=== PATIENT | female | born 1980 | race African-American/Black ===

== ENCOUNTER 2018-06-24 12:04 | Emergency (ER) | payer OTHER ==
[~2018-06-24] VITALS: Ht 172.7 cm; Wt 59.0 kg
[~2018-06-24 12:04] MED LIST: FLUV100T15
[2018-06-24 13:08] LABS: Urine Bacteria FEW /hpf (None Seen); Urine Blood Negative /uL (Negative); Urine Mucus MODERATE (None Seen); Urine WBC 29 /hpf (0 - 5)
[2018-06-24 13:35] LABS: Basophils # (auto) 0.1 uL; Basophils % (auto) 0.6 % (0.0-2.0); Eosinophils # (auto) 0.2 uL; Eosinophils % (auto) 1.3 % (0.0-7.0); Hematocrit 43.9 % (36.0-46.0); Hemoglobin 14.4 g/dL (12.2-16.2); Lymphocytes # (auto) 1.6 uL; Lymphocytes % (auto) 13.8 % (10.0-50.0); Mean Corpuscular Hemoglobin 28.9 pg (28.0-32.0); Mean Corpuscular Hgb Conc. 32.9 g/dL (32.0-36.0); Mean Corpuscular Volume 87.8 fL (80.0-100.0); Monocytes # (auto) 0.6 uL; Monocytes % (auto) 5.3 % (0.0-12.0); Neutrophils # (auto) 9.3 uL; Platelet Count (auto) 223 10^3/uL (140-450); Red Cell Distribution Width 13.6 % (11.8-14.3); White Blood Cell 11.7 10^3/uL (4.4-10.8)
[2018-06-24 13:54] LABS: BUN/Creatinine Ratio 9.6; Bilirubin, Total 0.6 mg/dL (0.2-1.0); Calcium 9.2 mg/dL (8.5-10.1); Total Protein 8.3 g/dL (6.4-8.2)
[2018-06-24] MEDS: LIDOCAINE 1% HCL (LOCAL ANESTH.) INJ 20ML MDV IJ ONE (19:51)
[2018-06-24] MEDS: KETOROLAC TROMETH 60MG/2ML VIAL IM ONE (19:52)
[2018-06-24] MEDS: cefTRIAXone SOD 1,000 MG VL IM ONE (19:52)
[2018-06-24 20:19] VITALS: BP 101/69
== END 2018-06-24 20:24 | disposition home or self-care (01) ==
LOC: ER 12:06
DX: N20.0 Calculus of kidney (principal); N39.0 Urinary tract infection, site not specified; J06.9 Acute upper respiratory infection, unspecified; D25.9 Leiomyoma of uterus, unspecified; Z87.891 Personal history of nicotine dependence
CPT/HCPCS: 36415; 71045; 74176; 80053; 81001; 81025; 83690; 85025; 96372; 99285; J0696; J1885; J2001

== ENCOUNTER 2018-10-25 13:20 | Emergency (ER) | payer OTHER ==
[~2018-10-25] VITALS: Ht 167.6 cm; Wt 61.2 kg
[2018-10-25 13:20] VITALS: BP 114/75
[2018-10-25] MEDS ORDERED: METHOCARBAMOL 500 MG TAB PO ONE (16:15)
[2018-10-25] MEDS ORDERED: KETOROLAC TROMETH 60MG/2ML VIAL IM ONE (16:15)
== END 2018-10-25 17:19 | disposition home or self-care (01) ==
LOC: EDBD 13:20 → ER 13:24
DX: S50.02XA Contusion of left elbow, initial encounter (principal); S80.02XA Contusion of left knee, initial encounter; S80.01XA Contusion of right knee, initial encounter; M19.90 Unspecified osteoarthritis, unspecified site; R51 Headache; M54.2 Cervicalgia; M54.9 Dorsalgia, unspecified; Z79.899 Other long term (current) drug therapy; Z98.51 Tubal ligation status; Z87.891 Personal history of nicotine dependence; Y08.89XA Assault by other specified means, initial encounter; Y93.89 Activity, other specified; Y99.8 Other external cause status; Y92.59 Other trade areas as the place of occurrence of the external cause
CPT/HCPCS: 70450; 72125; 96372; 99284; J1885

== ENCOUNTER 2020-12-23 19:24 | Emergency (ER) | payer OTHER ==
[~2020-12-23] VITALS: Ht 152.4 cm; Wt 68.0 kg
[2020-12-23] MEDS ORDERED: fentaNYL CITRATE 100 MCG/2 ML VL IV ONE ×2 (19:45→21:45)
[2020-12-23] MEDS ORDERED: KETOROLAC TROMETH 30 MG/ML 1ML VIAL IV ONE ×2 (19:45→21:45)
[2020-12-23] MEDS ORDERED: LIDOCAINE 2%HCL (LOCAL ANESTH.) INJ 10ml MDV IJ ONE (20:00)
[2020-12-23] MEDS ORDERED: LIDOCAINE 2% (LOCAL ANESTH.) PF 5ml SDV ONE (20:02)
[2020-12-23 21:56] VITALS: BP 110/71
== END 2020-12-23 22:01 | disposition home or self-care (01) ==
LOC: ER 19:28
DX: S62.616A Displaced fracture of proximal phalanx of right little finger, initial encounter for closed fracture (principal); S63.286A Dislocation of proximal interphalangeal joint of right little finger, initial encounter; S61.217A Laceration without foreign body of left little finger without damage to nail, initial encounter; S09.8XXA Other specified injuries of head, initial encounter; W01.0XXA Fall on same level from slipping, tripping and stumbling without subsequent striking against object, initial encounter; Y93.01 Activity, walking, marching and hiking; Y92.89 Other specified places as the place of occurrence of the external cause; Y99.8 Other external cause status
CPT/HCPCS: 26770; 70450; 70486; 72125; 73130; 96374; 96375; 96376; 99284; J1885; J2001; J3010